=== PATIENT | male | born 1970 | race Caucasian/White ===

== ENCOUNTER → 2019-11-24 08:39 | Outpatient (CLI) | payer OTHER, SELFPAY ==
--- NOTE | 2019-11-24 09:15 | MRI_ITS ---
STUDY: MRI LEFT SHOULDER REASON FOR EXAM: Male, 49 years old. LEFT shoulder pain worsens with movement, lifting injury 11/04/19 TECHNIQUE: Standardized fat and water weighted pulse sequences were obtained in all 3 orthogonal planes. COMPARISON: None. FINDINGS: Tendinosis of the supraspinatus with partial humeral intrasubstance distal tendon tear, series 4 images and .Normal infraspinatus tendon. Normal subscapularis tendon. Normal teres minor tendon. Normal supraspinatus muscle. Normal infraspinatus muscle. Normal subscapularis muscle. Normal teres minor muscle. 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 Cystic regions of the inferior glenoid. Small joint effusion. Normal humeral head and visualized proximal humerus. Normal biceps labral complex. There is tendinosis with thickening of the proximal long head of the biceps tendon, but without a demonstrated tear. There is fraying and tearing of the labrum extending nearly 360 degrees, series 7 images 11/19 through . Normal capsulo- ligamentous complex. Normal rotator interval. There is mild osteoarthritis of the acromioclavicular articulation. There is a Type II morphology (curved) acromion, with a neutral orientation. There is minimal fluid distention of the subacromial bursa, consistent with mild subacromial-subdeltoid bursitis. Normal visualized coracohumeral and coracoacromial ligaments. Normal quadrilateral space. Normal axillary space. Normal deltoid muscle. Normal trapezius muscle. MRI/Upper Ext Joint Only(Routine) IMPRESSION: Tendinosis with partial tear of the supraspinatus. No full-thickness rotator cuff tear. 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 Tendinosis of the proximal long head of the biceps. Joint effusion. Subacromial subdeltoid bursitis. Electronically Signed: Johann Pantoja MD at 10:41 EDT , Service support ,
== END ==
PROVIDERS: Referring Provider Family Medicine; Visit Provider Family Medicine
DX: S40.012A Contusion of left shoulder, initial encounter (principal); S43.402A Unspecified sprain of left shoulder joint, initial encounter
CPT/HCPCS: 73221

== ENCOUNTER → 2020-01-03 17:21 | Outpatient (CLI) | payer MEDICARE, SELFPAY | DX: J06.9 Acute upper respiratory infection, unspecified (principal); J18.9 Pneumonia, unspecified organism; Z20.828 Contact with and (suspected) exposure to other viral communicable diseases | CPT/HCPCS: 87426; C9803 ==